=== PATIENT | female | born 1940 | race Caucasian/White ===

== ENCOUNTER → 2016-09-07 | Outpatient (CLI) | payer OTHER ==
[~2016-09-07] MED LIST: GADOBUTROL 10 ML VIAL IVP ONE
[2016-09-07 17:13] LABS: CREATININE 0.7 mg/dL (0.6-1.0); GLOMERULAR FILTRATION RATE > 60
== END ==
LOC: FIMAGING 16:00
PROVIDERS: ATTEND Psychiatry & Neurology Neurology
DX: G96.19 Other disorders of meninges, not elsewhere classified (principal); M51.36 Other intervertebral disc degeneration, lumbar region
CPT/HCPCS: 72158; A9585

== ENCOUNTER 2016-09-11 19:00 | Emergency (ER) | payer OTHER ==
[2016-09-11] MEDS ORDERED: HYDROmorphONE/DILAUDID 1 MG/ML SYR IVP ONE (19:38)
[2016-09-11 19:40] VITALS: RESP 16
--- NOTE | 2016-09-11 19:44 | EDPHY ---
H & P Stated Complaint: right side KELLEY Time Seen by Provider: 09/11/16 19:30 HPI/ROS: CHIEF COMPLAINT: Headache HISTORY OF PRESENT ILLNESS: Patient is a 76-year-old female who comes to the emergency department complaining of a right-sided posterior headache that radiates to her jaw. She states that this headache began after she coughed. She is concerned that she may have ruptured aneurysm. She does not have any known aneurysms. 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 On she was getting an MRI of her lumbar spine for chronic low back pain. She had a nosebleed while she was on the MRI and was not able to sit up so began coughing. REVIEW OF SYSTEMS: Constitutional: denies: chills, fever, recent illness, recent injury EENTM: See HPI Respiratory: denies: cough, shortness of breath Cardiac: denies: chest pain, irregular heart rate, lightheadedness, palpitations Gastrointestinal/Abdominal: denies: abdominal pain, diarrhea, nausea, vomiting, blood streaked stools Genitourinary: denies: dysuria, frequency, hematuria, pain Musculoskeletal: denies: joint pain, muscle pain Skin: denies: lesions, rash, jaundice, bruising Neurological: See HPI Hematologic/Lymphatic: denies: blood clots, easy bleeding, easy bruising Immunologic/allergic: denies: HIV/AIDS, transplant EXAM: GENERAL: Well-appearing, well-nourished and in no acute distress. HEAD: Atraumatic, normocephalic. EYES: Right pupil round and reactive to light, left pupil is less reactive at baseline, extraocular movements intact, sclera anicteric, conjunctiva are normal. ENT: TMs normal, nares patent, oropharynx clear without exudates. Moist mucous membranes. NECK: Normal range of motion, supple without lymphadenopathy or JVD. LUNGS: Breath sounds clear to auscultation bilaterally and equal. No wheezes rales or rhonchi. HEART: Regular rate and rhythm without murmurs, rubs or gallops. ABDOMEN: Soft, nontender, normoactive bowel sounds. No guarding, no rebound. No masses appreciated. BACK: No CVA tenderness, no spinal tenderness, step-offs or deformities EXTREMITIES: Normal range of motion, no pitting or edema. No clubbing or cyanosis. NEUROLOGICAL: Cranial nerves II through XII grossly intact. Normal speech, normal gait. 5/5 strength, normal movement in all extremities, normal sensation PSYCH: Normal mood, normal affect. SKIN: Warm, dry, normal turgor, no visible rashes or lesions. Source: Patient Exam Limitations: No limitations - Personal History Current Tetanus/Diphtheria Vaccine: Yes Current Tetanus Diphtheria and Acellular Pertussis (TDAP): Yes - Medical/Surgical History Hx Asthma: No Hx Chronic Respiratory Disease: No Hx Diabetes: Yes Hx Cardiac Disease: No Hx Renal Disease: No Hx Cirrhosis: No Hx Alcoholism: No Hx HIV/AIDS: No Hx Splenectomy or Spleen Trauma: No Other PMH: history of DVT, glaucoma, diabetic, PE, and hypothyroid, blind in the left eye - Family History Significant Family History: Hypertension - Social History Smoking Status: Never smoked Alcohol Use: None Drug Use: None Constitutional: Initial Vital Signs Temperature (C) 36.8 C 09/11/16 19:38 Heart Rate 78 09/11/16 19:38 Respiratory Rate 16 09/11/16 19:38 Blood Pressure 177/84 H 09/11/16 19:38 O2 Sat (%) 94 09/11/16 19:38 O2 Delivery Mode Room Air Allergies/Adverse Reactions: codeine Allergy (Verified 09/11/16 19:33) Home Medications: Medication Instructions Recorded Warfarin Sodium [Coumadin 2.5MG 2.5 mg PO Q2D 12/17/11 (*)] Warfarin Sodium [Coumadin] 5 mg PO Q2D 12/17/11 Brinzolamide 1% [AZOPT 1% (RX)] 1 drop LEFTEYE BID 12/29/15 Herbals/Supplements -Info Only 1 ea PO DAILY 12/29/15 metFORMIN HCL [Glucophage 500 mg 1,000 mg PO BIDMEAL 12/29/15 (*)] Atorvastatin Calcium [Lipitor 20 20 mg PO HS 01/27/16 mg (*)] Acetaminophen [Tylenol 325mg (*)] 325 - 650 mg PO Q4 PRN #0 tab 01/28/16 CEVIMELINE HCL [EVOXAC] 0 mg PO BID 01/28/16 Docusate Sodium [Colace 100 MG (*)] 100 mg PO BID #0 cap 01/28/16 Enoxaparin [Lovenox] 30 mg SC BID #0 syr 01/28/16 Erythromycin Gel [Erythromycin 2% 1 margarita TP DAILY PRN #0 gel 01/28/16 Gel (*)] Latanoprost 0.005% [Xalatan 0.005% 1 drops LEFTEYE HS #0 opht.btl 01/28/16 (*)] Levothyroxine [Synthroid 137 mcg 137 mcg PO DAILY06 #0 tab 01/28/16 (*)] metFORMIN HCL [Glucophage 500 mg 1,000 mg PO BIDMEAL #0 tab 01/28/16 (*)] Brimonidine/Timolol [Combigan (*)] 09/11/16 GABAPENTIN 09/11/16 Medical Decision Making - Diagnostics Imaging: Results: CT scan of the head was obtained. The results of the study are negative. The study was read by Radiology. I viewed the images myself on the PACS system. ED Course/Re-evaluation: We discussed the CT and blood work. The patient is reassured. I suspect that she may have a slightly compressed posterior occipital nerve that happened during the MRI scan. She is gradually improving. I encouraged her to take her gabapentin as prescribed by her neurologist she has only been taking a 3rd of the recommended dose. She declines steroids. We discussed her Coumadin doses. She will follow up with her primary in the next 2 days. We discussed indications for returning. Differential Diagnosis: Partial list of the Differential diagnosis considered include but were not limited to; intracranial hemorrhage, neuropathy, and although unlikely based on the history and physical exam, I also considered fracture, infection. I discussed these differential diagnoses and the plan with the patient as well as the usual and expected course. The patient understands that the diagnosis is provisional and that in medicine we are not always correct and that further workup is often warranted. Usual and customary warnings were given. All of the patient's questions were answered. The patient was instructed to return to the emergency department should the symptoms at all worsen or return, otherwise to followup with the physician as we discussed. - Data Points Laboratory Results: Laboratory Results 09/11/16 19:50 09/11/16 19:50 Medications Given: Discontinued Medications Hydromorphone HCl (Dilaudid) 0.5 mg IVP EDNOW ONE Stop: 09/11/16 19:39 Last Admin: 09/11/16 19:56 Dose: 0.5 mg Departure - Departure Disposition: Home, Routine, Self-Care Clinical Impression: Neuropathy Headache Qualifiers: Headache type: unspecified Headache chronicity pattern: acute headache Intractability: not intractable Qualified Code(s): R51 - Headache Condition: Fair Instructions: Peripheral Neuropathy (ED), General Headache (ED) Referrals: Tanya Davis MD [Primary Care Provider] - As per Instructions
[2016-09-11 20:07] LABS: % IMMATURE GRANULYOCYTES 0.3 % (0.0-1.1); ABSOLUTE IMMATURE GRANULOCYTES 0.02 10^3/uL (0.00-0.10); ADD DIFF? NO; ADD MORPH? NO; ADD SCAN? NO; ATYPICAL LYMPHOCYTE FLAG 20 (0-99); FRAGMENT RBC FLAG 0 (0-99); HEMATOCRIT 38.6 % (38.0-47.0); HEMOGLOBIN 13.2 g/dL (12.6-16.3); LEFT SHIFT FLG 0 (0-99); LIPEMIA HEMOLYSIS FLAG 90 (0-99); MEAN CELL HEMOGLOBIN 31.7 pg (27.9-34.1); MEAN CELL HEMOGLOBIN CONCENTR. 34.2 g/dL (32.4-36.7); MEAN CELL VOLUME 92.6 fL (81.5-99.8); MEAN PLATELET VOLUME 10.5 fL (8.7-11.7); PLATELET CLUMPS FLAG 10 (0-99); PLATELET COUNT 219 10^3/uL (150-400); RED BLOOD CELL COUNT 4.17 10^6/uL (4.18-5.33); RED CELL DISTRIBUTION WIDTH 12.6 % (11.5-15.2)
[2016-09-11 20:16] LABS: INR 2.99 (0.83-1.16); PROTIME(PATIENT) 31.5 SEC (12.0-15.0)
[2016-09-11 20:20] LABS: ANION GAP 9 mEq/L (8-16); CALCIUM 9.6 mg/dL (8.5-10.4); CARBON DIOXIDE 29 mEq/l (22-31); CHLORIDE 102 mEq/L (97-110); CREATININE 0.8 mg/dL (0.6-1.0); GLOMERULAR FILTRATION RATE > 60; GLUCOSE 117 mg/dL (70-100); POTASSIUM 4.1 mEq/L (3.5-5.2); SODIUM 140 mEq/L (134-144)
[2016-09-11 21:03] VITALS: BP 140/83; PULSE 69; TEMP 97.9; O2SAT 96
== END 2016-09-11 21:35 | disposition home or self-care (01) ==
DX: R51 Headache (principal); E11.40 Type 2 diabetes mellitus with diabetic neuropathy, unspecified; Z79.01 Long term (current) use of anticoagulants
CPT/HCPCS: 70450; 96374; 99285; J1170

== ENCOUNTER → 2016-09-27 | Outpatient (CLI) | payer OTHER | LOC: BMCIMAGING 15:15 | DX: Z12.31 Encounter for screening mammogram for malignant neoplasm of breast (principal) | CPT/HCPCS: G0202 ==

== ENCOUNTER → 2018-06-25 | Outpatient (CLI) | payer OTHER | LOC: BMCIMAGING 14:57 | PROVIDERS: ATTEND Orthopaedic Surgery | DX: M25.561 Pain in right knee (principal) ==

== ENCOUNTER → 2018-08-13 | Outpatient (CLI) | payer OTHER | LOC: BMCIMAGING 13:10 | PROVIDERS: ATTEND Internal Medicine | DX: Z12.31 Encounter for screening mammogram for malignant neoplasm of breast (principal) ==

== ENCOUNTER → 2018-10-24 | Outpatient (CLI) | payer OTHER | LOC: BMCIMAGING 13:44 | PROVIDERS: ATTEND Internal Medicine | DX: J98.09 Other diseases of bronchus, not elsewhere classified (principal) ==